=== PATIENT | male | born 1940 | race Caucasian/White ===

== ENCOUNTER → 2021-12-16 09:59 | Outpatient (BNVA) | payer MEDICARE, SELFPAY | PROVIDERS: Family Provider Family Medicine; PCP Family Medicine; Visit Provider Nurse Practitioner Family | DX: R33.9 Retention of urine, unspecified (principal); R82.90 Unspecified abnormal findings in urine | CPT/HCPCS: 99203 ==

== ENCOUNTER 2021-12-17 13:35 | Emergency (ER) | payer MEDICARE, SELFPAY ==
[2021-12-17 13:44] VITALS: BP 90/54; PULSE 90; RESP 16; TEMP 36.5; O2SAT 98
--- NOTE | 2021-12-17 14:44 | ED_ITS ---
HPI - General Adult General: Chief complaint: Recheck/Abnormal Lab/Rx Stated complaint: Blood Sugar high Time Seen by Provider: 12/17/21 14:15 History of Present Illness: Patient is an 81-year-old male with history of hypothyroidism, diabetes, hypertension, chronically warfarin dependent presenting to the emergency room for concerns of elevated INR. Patient was told to come to the emergency room by his primary care provider for elevated INR. Patient recently yesterday underwent Osuna placement for urinary retention. Since then, patient has been having gross hematuria. As well as mild bleeding around the urethral site. Patient has been applying paper towel to the urethral opening. Patient has been able to stop the bleeding. Patient denies any fever/chills, cough, runny nose, sore throat, chest pain, shortness breath, palpitation, abdominal pain, diarrhea/melena/hematochezia. He is not on any antibiotics. Patient denies hemoptysis, hematemesis. Patient denies any other areas of bleeding. Onset: 1 day of hematuria, unknown duration of elevated INR Duration:ongoing Location:home Severity:mild Associated symptoms: Deny chest pain, dyspnea, nausea, rash, palpitations or vomiting Review of Systems Const: Denies: fever(s) or chills Eyes: Denies: change in vision ENMT: Denies: mouth pain Card: Denies: chest pain or palpitations Resp: Denies: dyspnea or non-productive cough GI: Denies: abdominal pain, nausea, vomiting or diarrhea : Reports: other (+osuna, +hematuria); Denies: dysuria Musc: Denies: extremity pain Skin/Breast: Denies: rash or new lesions Neuro: Denies: weakness in extremities Psych: Reports: other (Normal mood) Tommy/Lymph: Denies: easy bruising PFSH ED PFSH: Medical History Diabetes Hypertension Thyroid disease Urinary retention Surgical History History of surgery for cerebral aneurysm History of thyroidectomy Family History Mother , at age 82 No problems noted. Father , age 74 CAD (coronary artery disease) Lung disease Social History Smoking and tobacco status: former smoker Alcohol intake: never Marital status: / Current occupational status: retired History of recent travel: No Physical Exam Const: COMMON NORMALS: alert HENMT: COMMON NORMALS: atraumatic HEAD & SCALP: atraumatic MOUTH: moist mucous membranes not abnormal Eye: COMMON NORMALS: EOMs intact bilaterally and conjunctivae normal CONJUNCTIVA: Yes conjunctivae normal Neck/C-Spine: COMMON NORMALS: full ROM and supple Resp: COMMON NORMALS: normal respiratory effort and clear to auscultation bilaterally AUSCULTATION: clear to auscultation bilaterally Cardio: COMMON NORMALS: regular rate RATE: regular rate GI: COMMON NORMALS: Soft to palpation and non-tender PALPATION: Yes Soft to palpation OTHER: No focal TTP. NO guarding rebound, guarding, rigidity. No CVA tenderness to percussion. Neg Oakes/Neg McBurney's point tenderness, no suprabupic tenderness to palpation. : OTHER: 16Fr indwelling osuna in place +mild gross hematuria in the urine bag +No periurethral meatus bleeding or drainage Extremity: COMMON NORMALS: full ROM Neuro: SENSORIUM/ORIENTATION: Yes alert MOTOR EXAM: No Abnormal motor strength present and Other motor observations present (no focal motor deficits) Psych: COMMON NORMALS: speech normal SPEECH: Yes normal speech MOOD & AFFECT: Yes euthymic mood Course Vital Signs: Vital signs: Vital Signs Temperature 97.7 F 12/17/21 13:44 Pulse Rate 90 12/17/21 13:44 Respiratory Rate 16 12/17/21 13:44 Blood Pressure 90/54 12/17/21 13:44 Pulse Oximetry 98 12/17/21 13:44 Oxygen Delivery Me thod 12/17/21 13:44 MDM - General Adult Medical Decision Making Patient is an 81-year-old male with history of hypothyroidism, diabetes, hypertension, chronically warfarin dependent presenting to the emergency room for concerns of elevated INR. Patient was told to come to the emergency room by his primary care provider for elevated INR. On physical exam, patient is hemodynamically stable. Patient is noted to have gross hematuria in the urine bag. There is no. Urethral meatus leakage or bleeding. Hemoglobin of 13.3 today. Patient's INR is 4.6. After emptying patient's Osuna bag, patient has not had any hematuria. I have instructed patient skip a dose of his INR for 1 day. In addition have instructed patient follow-up with his primary care provider in 2 to 3 days to have his INR rechecked as well as to have his hemoglobin rechecked. Patient agreed with everything discussed today. In addition, the patient requested for vitamin K today per request of his primary care provider. Patient received 10 mg of IV vitamin K. Disposition: Discharge. Patient counseled regarding diagnostic impression, treatment plan. Patient given ED strict return precautions to return for cont inuation, worsening, or development of new symptoms. Instructed to f/u w/ PCP regarding symptoms today. Patient verbalized understanding. Lab Data : 12/17/21 14:40 12/17/21 14:40 Laboratory Results WBC 7.1 10^3/uL (4.0-10.0) 12/17/21 14:40 RBC 4.39 10^6/uL (4.1-5.3) 12/17/21 14:40 Hgb 13.3 g/dL (11.7-16.6) 12/17/21 14:40 Hct 41.0 % (42.0-52.0) L 12/17/21 14:40 MCV 93.4 fl (80-94) 12/17/21 14:40 MCH 30.3 pg (28.0-34.0) 12/17/21 14:40 MCHC 32.4 g/dL (30.0-36.0) 12/17/21 14:40 RDW 13.6 % (12.1-15.1) 12/17/21 14:40 Plt Count 267 10^3/cmm (130-400) 12/17/21 14:40 MPV 9.1 fL (7.4-10.4) 12/17/21 14:40 Neut % (Auto) 71.7 % 12/17/21 14:40 Lymph % (Auto) 13.7 % 12/17/21 14:40 [place] % (Auto) 11.3 % 12/17/21 14:40 Eos % (Auto) 2.4 % 12/17/21 14:40 Baso % (Auto) 0.3 % 12/17/21 14:40 Neut # (Auto) 5.08 10^3/uL (1.8-7.7) 12/17/21 14:40 Lymph # (Auto) 1.0 10^3/uL (0.8-4.8) 12/17/21 14:40 [place] # (Auto) 0.8 10^3/uL (0.2-0.9) 12/17/21 14:40 Eos # (Auto) 0.2 10^3/uL (0.0-0.8) 12/17/21 14:40 Baso # (Auto) 0.0 10^3/uL (0.0-0.1) 12/17/21 14:40 Nucleated RBC % (auto) 0 % 12/17/21 14:40 Nucleated RBCs # 0.0 /100WBC 12/17/21 14:40 PT 43.90 SECONDS (12.1-14.9) H 12/17/21 14:40 INR 4.63 (0.8-1.2) H 12/17/21 14:40 APTT 81.0 SECONDS (23.9-36.7) H 12/17/21 14:40 Sodium 134 mmol/L (136-145) L 12/17/21 14:40 Potassium 4.0 mmol/L (3.5-5.1) 12/17/21 14:40 Chloride 99 mmol/L (98-107) 12/17/21 14:40 Carbon Dioxide 25 mmol/L (22-29) 12/17/21 14:40 Anion Gap 14.0 (5-19) 12/17/21 14:40 BUN 23 mg/dL (8-23) 12/17/21 14:40 Creatinine 0.9 mg/dL (0.7-1.2) 12/17/21 14:40 GFR Calculation Not Reportable 12/17/21 14:40 Glucose 108 mg/dL (65-115) 12/17/21 14:40 Calculated Osmolality 282 mOsm/kg (285-295) L 12/17/21 14:40 Calcium 9.2 mg/dL (8.5-10.5) 12/17/21 14:40 Total Bilirubin 1.4 mg/dL (0.15-1.2) H 12/17/21 14:40 AST 47 U/L (0-40) H 12/17/21 14:40 ALT 34 U/L (0-41) 12/17/21 14:40 Alkaline Phosphatase 129 U/L (40-130) 12/17/21 14:40 Total Protein 6.8 g/dL (6.6-8.7) 12/17/21 14:40 Albumin 3.5 g/dL (3.5-5.2) 12/17/21 14:40 Globulin 3.3 g/dL (1.3-4.6) 12/17/21 14:40 Discharge Plan Discharge Patient Disposition: Home Clinical Impression: Hematuria, Elevated INR Condition: Stable Prescriptions: No Action warfarin 4 mg tablet 4 mg PO DAILY Rx Instructions: 1 tab Mon,Wed, Fri 2 tabs all other days levothyroxine 100 mcg capsule 100 mcg PO DAILY hydrocodone-acetaminophen 5-325 mg tablet 1 tab PO Q8H PRN (Reason: Pain) trazodone 50 mg tablet 50 mg PO BEDTIME Rx Instructions: 1/2-1 metformin 1,000 mg tablet 1,000 mg PO BID lisinopril 20 mg tablet 20 mg PO DAILY levofloxacin 500 mg tablet 500 mg PO DAILY 7 Days Qty: 7 0RF sertraline 50 mg tablet 50 mg PO DAILY Discharge Orders: Discharge ED (Routine); Ordered 12/17/21 Ordered By: Blaise Corbett Referrals: Nataly Veloz DO [Primary Care Provider] - Discharge Diet: Advance as tolerated Discharge Activity: Increase activity as tolerated Patient Instructions: Hematuria (ED) Activity Restrictions/Additional Instructions: Come back if you have any new or concerning issues. Please come back if any significant hematuria. Please skip the dose of your warfarin for 1 day. Please follow up with your primary care provider to evaluate for your hemoglobin and also for your INR. Coding Level of Care Code ED [employer] for Chg Fwd Exam Comprehensive
[2021-12-17 14:45] LABS: Basophils % 0.3 %; Eosinophils # 0.2 10^3/uL (0.0-0.8); Eosinophils % 2.4 %; Hemoglobin 13.3 g/dL (11.7-16.6); Lymphocytes % 13.7 %; Mean Corpuscular HGB Conc 32.4 g/dL (30.0-36.0); Mean Corpuscular Hemoglobin 30.3 pg (28.0-34.0); Mean Corpuscular Volume 93.4 fl (80-94); Mean Platelet Volume 9.1 fL (7.4-10.4); Monocytes # 0.8 10^3/uL (0.2-0.9); Monocytes % 11.3 %; Neutrophils # 5.08 10^3/uL (1.8-7.7); Neutrophils % 71.7 %; Nucleated Red Blood Cells % 0 %; Platelet Count 267 10^3/cmm (130-400); Red Blood Count 4.39 10^6/uL (4.1-5.3); Red Cell Distribution Width 13.6 % (12.1-15.1); White Blood Count 7.1 10^3/uL (4.0-10.0)
[2021-12-17 15:00] VITALS: BP 127/77; PULSE 70; RESP 15; O2SAT 97
[2021-12-17 15:07] LABS: Alanine Aminotransferase 34 U/L (0-41); Albumin Level 3.5 g/dL (3.5-5.2); Alkaline Phosphatase 129 U/L (40-130); Aspartate Amino Transferase 47 U/L (0-40); Blood Urea Nitrogen 23 mg/dL (8-23); Calcium 9.2 mg/dL (8.5-10.5); Carbon Dioxide 25 mmol/L (22-29); Chloride 99 mmol/L (98-107); Globulin 3.3 g/dL (1.3-4.6); Glucose 108 mg/dL (65-115); Osmolality Calculated 282 mOsm/kg (285-295); Sodium 134 mmol/L (136-145); Total Bilirubin 1.4 mg/dL (0.15-1.2); Total Protein 6.8 g/dL (6.6-8.7)
[2021-12-17 16:00] VITALS: BP 141/87; PULSE 72; RESP 14; O2SAT 98
[2021-12-17 16:30] VITALS: BP 137/82; PULSE 66; RESP 14; O2SAT 99
[2021-12-17 16:37] LABS: INR 4.63 (0.8-1.2)
[2021-12-17] MEDS: phytonadione (ADULT) 10 MG in sodium chloride 0.9% 50 ML 153 MG IV (17:15)
== END 2021-12-17 17:45 | disposition home or self-care (01) ==
PROVIDERS: Emergency Medicine; Emergency Provider Emergency Medicine; PCP Family Medicine
DX: R31.9 Hematuria, unspecified (principal); R79.89 Other specified abnormal findings of blood chemistry; Z79.01 Long term (current) use of anticoagulants; Z79.84 Long term (current) use of oral hypoglycemic drugs; E11.9 Type 2 diabetes mellitus without complications; I10 Essential (primary) hypertension; Z87.891 Personal history of nicotine dependence
CPT/HCPCS: 80053; 85025; 85610; 85730; 96365; 99284; J3430

== ENCOUNTER → 2021-12-28 10:39 | Outpatient (BNVA) | payer MEDICARE, SELFPAY | PROVIDERS: PCP Family Medicine; Visit Provider Nurse Practitioner Family | DX: R33.9 Retention of urine, unspecified (principal) | CPT/HCPCS: 51700; 99213 ==